=== PATIENT | male | born 1955 | race Caucasian/White ===

== ENCOUNTER → 2020-07-18 | Outpatient (CLI) | payer MEDICARE, BC ==
--- NOTE | 2020-07-18 17:30 | RAD ---
Exam: Ultrasound renal complete Indication: Gross hematuria Technique: Real-time grayscale and color Doppler images of the kidneys were obtained by the [facility] manager sound. Comparisons: None FINDINGS: Right kidney measures 11.7 cm in length. No hydronephrosis. There is a right renal mass which measure s approximately 7.7 x 6.2 cm. Left kidney measures 10.9 cm in length. No hydronephrosis. Bladder is partially distended debris noted internally. Visual is portions aorta and IVC are unremarkable. IMPRESSION: 1. Right renal mass measuring up to 7.[address] of the abdomen and pelvis with contrast i s recommended for further evaluation. 2. Debris noted within the bladder, likely related to hemorrhagic products. Electronically signed by: Cari Díaz MD (07/18/2020 5:28 PM) FORD
== END ==
LOC: US 16:42
PROVIDERS: ATTEND Specialist
DX: N28.89 Other specified disorders of kidney and ureter (principal); N32.89 Other specified disorders of bladder; R31.0 Gross hematuria
CPT/HCPCS: 76770

== ENCOUNTER → 2020-08-28 | Outpatient (CLI) | payer MEDICARE, BC ==
--- NOTE | 2020-08-28 17:22 | RAD ---
EXAM: Chest, 2 views. HISTORY: Cough. COMPARISON: None. FINDINGS: 2 views of the chest are obtained. There is no infiltrate, pleural effusion or pneumothorax . The heart is normal in size. IMPRESSION: No acute pulmonary finding. Electronically signed by: Ann Patel MD (08/28/2020 5:20 PM) [id number]
== END ==
LOC: RAD 16:35
PROVIDERS: ATTEND Physician Assistant
DX: R05 Cough (principal)
CPT/HCPCS: 71046